=== PATIENT | male | born 1995 | race Caucasian/White ===

== ENCOUNTER 2017-05-23 19:09 | Emergency (ER) | payer OTHER ==
[2017-05-23 19:15] VITALS: RESP 18
[2017-05-23 19:33] LABS: PLATELET COUNT 291 10^3/uL (150-400)
--- NOTE | 2017-05-23 19:33 | EDPHY ---
H & P Smoking Status: Light smoker Time Seen by Provider: 05/23/17 19:21 HPI/ROS: CHIEF COMPLAINT: Dyspnea HISTORY OF PRESENT ILLNESS: 21-year-old male presents to the emergency department by private vehicle complaining of difficulty breathing. [place] [facility]. He apparently ate food on the plane. When he came to [place] he apparently smoked marijuana. This was approximately 1 hr ago. The patient is now complaining of difficulty breathing. He is concerned that he has symptoms related to altitude sickness. The patient grew up in [place]. He attends school in [facility]. He states he has not been vomiting. He denies feeling nauseous. No diarrhea. No pain in his chest. He states "I just can not breathe ". Denies abdominal pain. Denies pain or swelling in his legs. Denies any reported trauma. Denies any other illicit drug use. REVIEW OF SYSTEMS: Constitutional: No fever, no chills. Eyes: No double or blurry vision. ENT: No sore throat. Respiratory: As above. No cough. Cardiac: No chest pain. Gastrointestinal: No abdominal pain, vomiting or diarrhea. Genitourinary: No dysuria. Musculoskeletal: No neck or back pain. Skin: No rashes. Neurological: No headache. (Caro Yuenrina Brooke) Past Medical/Surgical History: Marijuana use (Carmelina Yuen) Social History: Single, college student at [employer] (Carmelina Yuen) Physical Exam: General Appearance: Lethargic, no distress. 97% on room air. 97/57 Eyes: Pupils equal and round. Extraocular motions are all intact. ENT: Mouth: Mucous membranes moist. Respiratory: No wheezing, rhonchi, or rales, lungs are clear to auscultation. Cardiovascular: Regular rate and rhythm. Gastrointestinal: Abdomen is soft and nontender, no masses, no rebound or guarding, bowel sounds normal. Neurological: Uncooperative, cannot determine. Skin: Warm and dry, no rashes. Musculoskeletal: Nontender to palpate along the cervical, thoracic or lumbar spine. Neck is supple. Extremities: Full range of motion and no peripheral edema. Psychiatric: no agitation. (Caro Yuenrinmaverick Cox) Constitutional: Initial Vital Signs Temperature (C) 36.9 C 05/23/17 19:13 Heart Rate 88 01/10/18 19:13 Respiratory Rate 18 05/23/17 19:13 Blood Pressure 97/57 L 05/23/17 19:13 O2 Sat (%) 97 05/23/17 19:13 O2 Delivery Mode Room Air Allergies/Adverse Reactions: walnuts Allergy (Uncoded 05/23/17 19:15) Home Medications: Medication Instructions Recorded Albuterol [Proventil] 17 gm IH 03/30/11 Medical Decision Making - Diagnostics Imaging Results: Imaging Impressions Chest X-Ray 05/23/17 19:28 Impression: Hyperexpansion and mild peribronchial thickening suggests airways disease. Head CT 05/23/17 20:04 Impression: 1. Normal CT scan of the head. 2. See above report for specific findings. Results called and discussed with CARMELINA YUEN on 05/23/2017 at 20:44 ED Course/Re-evaluation: 21-year-old male presents to the emergency department stating that he can't breathe. He recently smoked marijuana. He has done this in the past. His vital signs are stable. He is 98% on room air. Current blood pressure 130/60. Case was discussed with Dr. Deep Lujan, secondary supervising physician, who also evaluated the patient. Patient had IV established and laboratory studies were drawn. Patient was given IV normal saline. Sodium 142, potassium 3.0 The patient was becoming tremulous. He was also not responding to questions or painful stimuli. His vital signs are stable. He was kept on a sat instructor. His pupils were still reactive. CT imaging of the brain was obtained which was normal. Chest x-ray was unremarkable. Ammonia was used to help arouse the patient. The patient became very tearful. His mother told him that a catheter was going to be placed in his bladder if he did not start answering questions a responding and the patient then became very tearful and started crying and was answering questions. The patient states that he has felt depressed and very anxious and overwhelmed. He does not feel suicidal homicidal. I also spoke with the mother at bedside. I spoke with Rika from [facility], who is coming to bring them resources for mental health. (Carmelina Yuen) Differential Diagnosis: Depression including functional and major depression, situational depression, medication side effect, drugs and alcohol abuse. (Carmelina Yuen) Other Provider: The patient was evaluated and managed by the Physician Bi Tri Operator and myself. I have reviewed the chart and agree with the findings and plan of care as documented. In addition, I examined the patient myself. History confirmed as marijuana "bong hit" then feeling short of breath. Physical findings as follows : patient has normal oxygen saturation. Responds to questions but decreased. Suspect anxiety and marijuana reaction, will get chest Xray. Serial exams. Further evaluation and testing if does not improve in timely fashion. Do not think PE is likely. I am the secondary supervising physician. (Deep Lujan) - Data Points Laboratory Results: Laboratory Results 05/23/17 19:24 05/23/17 19:24 05/23/17 05/23/17 05/23/17 19:24 19:24 19:24 WBC 11.31 10^3/uL H 10^3/uL (3.80-9.50) RBC 4.61 10^6/uL 10^6/uL (4.40-6.38) Hgb 15.1 g/dL g/dL (13.7-17.5) Hct 41.0 % % (40.0-51.0) MCV 88.9 fL fL (81.5-99.8) MCH 32.8 pg pg (27.9-34.1) MCHC 36.8 g/dL H g/dL (32.4-36.7) RDW 13.1 % % (11.5-15.2) Plt Count 291 10^3/uL 10^3/uL (150-400) MPV 8.9 fL fL (8.7-11.7) Neut % (Auto) 49.6 % % (39.3-74.2) Lymph % (Auto) 41.8 % % (15.0-45.0) [place] % (Auto) 5.6 % % (4.5-13.0) Eos % (Auto) 1.9 % % (0.6-7.6) Baso % (Auto) 0.8 % % (0.3-1.7) Nucleat RBC Rel Count 0.0 % % (0.0-0.2) Absolute Neuts (auto) 5.61 10^3/uL 10^3/uL (1.70-6.50) Absolute Lymphs (auto) 4.73 10^3/uL H 10^3/uL (1.00-3.00) Absolute Monos (auto) 0.63 10^3/uL 10^3/uL (0.30-0.80) Absolute Eos (auto) 0.22 10^3/uL 10^3/uL (0.03-0.40) Absolute Basos (auto) 0.09 10^3/uL 10^3/uL (0.02-0.10) Absolute Nucleated RBC 0.00 10^3/uL 10^3/uL (0-0.01) Immature Gran % 0.3 % % (0.0-1.1) Immature Gran # 0.03 10^3/uL 10^3/uL (0.00-0.10) Sodium 142 mEq/L mEq/L (135-145) Potassium 3.0 mEq/L L mEq/L (3.5-5.2) Chloride 100 mEq/L mEq/L (97-110) Carbon Dioxide 21 mEq/l L mEq/l (22-31) Anion Gap 21 mEq/L H mEq/L (8-16) BUN 12 mg/dL mg/dL (7-23) Creatinine 0.9 mg/dL mg/dL (0.7-1.3) Estimated GFR > 60 Glucose 176 mg/dL H mg/dL (70-100) Calcium 10.0 mg/dL mg/dL (8.5-10.4) Ethyl Alcohol < 10 mg/dL mg/dL (0-10) Medications Given: Discontinued Medications Ammonia (Aromatic Spirit) (Ammonia Aromatic) 1 each IH EDNOW ONE Stop: 05/23/17 21:41 Last Admin: 05/23/17 21:44 Dose: 1 each Sodium Chloride (Ns) 1,000 mls @ 0 mls/hr IV ONCE ONE PRN Reason: Wide Open Stop: 05/23/17 19:30 Last Admin: 05/23/17 21:00 Dose: 1,000 mls Departure - Departure Disposition: Home, Routine, Self-Care Clinical Impression: Depression, Marijuana abuse Altered mental status Qualifiers: Altered mental status type: transient alteration of awareness Qualified Code(s) : R40.4 - Transient alteration of awareness Condition: Good Instructions: Depression (ED), Altered Mental Status (ED) Additional Instructions: Follow-up with therapist and or counselor as discussed. Diet and activity as tolerated. Referrals: Pantera Black MD [Primary Care Provider] - As per Instructions
[2017-05-23] MEDS: NS 1,000 ML IV ONE ×2 (19:36→21:00)
[2017-05-23 20:34] VITALS: O2SAT 97
[2017-05-23] MEDS ORDERED: AMMONIA AROMATIC 1 EACH AMP IH ONE ×2 (21:37→21:40)
[2017-05-23 23:03] VITALS: BP 132/58; PULSE 91; TEMP 98.2
== END 2017-05-23 23:03 | disposition home or self-care (01) ==
DX: R40.4 Transient alteration of awareness (principal); F32.9 Major depressive disorder, single episode, unspecified; F12.10 Cannabis abuse, uncomplicated; F17.200 Nicotine dependence, unspecified, uncomplicated
CPT/HCPCS: G0480